=== PATIENT | male | born 1965 | race Hispanic/Latino ===

== ENCOUNTER 2021-09-28 14:49 | Emergency (ER) | payer SELFPAY ==
[2021-09-28] MEDS ORDERED: Lidocaine 1% PF 5 ML VIAL ONE ×3 (17:13→19:08)
[2021-09-28] MEDS ORDERED: Boostrix 0.5 ML (Tdap) VIAL ONE (17:28)
[2021-09-28] MEDS ORDERED: CEFAZOLIN 1 GM VIAL ONE (17:46)
[2021-09-28] MEDS ORDERED: Sterile Water 10 ML ONE (17:48)
== END 2021-09-28 21:54 | disposition home or self-care (01) ==
LOC: ERS 14:49
DX: S62.635B Displaced fracture of distal phalanx of left ring finger, initial encounter for open fracture (principal); W27.0XXA Contact with workbench tool, initial encounter; Z23 Encounter for immunization
CPT/HCPCS: 90471; 90715; 96372; J0690